=== PATIENT | female | born 1935 | race Caucasian/White ===

== ENCOUNTER 2018-01-13 13:44 | Outpatient (CLI) | payer MEDICARE ==
[~2018-01-13] VITALS: Ht 154.9 cm; Wt 69.9 kg
[2018-01-13] MEDS ORDERED: METO-333 PO (14:16)
[2018-01-13] MEDS ORDERED: LISI1TAB8 PO (14:16)
[2018-01-13] MEDS ORDERED: LEVO100T PO (14:16)
[2018-01-13] MEDS ORDERED: SENN-175 PO (14:16)
[2018-01-13] MEDS ORDERED: OMEP20CA12 PO (14:16)
[2018-01-16] MEDS ORDERED: ACHD5005 PO (09:44)
[2018-01-16] MEDS ORDERED: AMOX-355 PO (09:45)
== END 2018-01-13 14:43 | disposition home or self-care (01) ==
LOC: PREOP 13:44
PROVIDERS: ATTEND Surgery
DX: Z01.818 Encounter for other preprocedural examination (principal)

== ENCOUNTER 2018-01-16 06:14 | Day surgery (SDC) | payer MEDICARE ==
[~2018-01-16] VITALS: Ht 154.9 cm; Wt 69.9 kg
[~2018-01-16 06:14] MED LIST: LEVO100T PO; LISI1TAB8 PO; METO-333 PO; OMEP20CA12 PO; SENN-175 PO
[2018-01-16] MEDS ORDERED: ONDANSETRON 4 MG/2 ML (SDV) Z0FRAN ONE (06:45)
[2018-01-16] MEDS ORDERED: LIDOCAINE PF 2% 2 ML (XYLOCAINE) VIAL ONE (06:45)
[2018-01-16] MEDS ORDERED: fentaNYL INJECTION 100 MCG/2 ML AMP ONE ×2 (06:45→09:30)
[2018-01-16] MEDS ORDERED: ROCURONIUM 10 MG/ML 5 ML SYRINGE IV ONE (06:45)
[2018-01-16] MEDS: LACTATED RINGERS 1,000 ML IV PRN ×2 (06:45→08:21)
[2018-01-16] MEDS ORDERED: proPOfol 200 MG/20 ML (DIPRIVAN) VIAL IV ONE (06:45)
[2018-01-16] MEDS ORDERED: DEXAMETHASONE 10 MG/ML (DECADRON) 1 ML VIAL ONE (06:45)
[2018-01-16 06:48] LABS: BASOPHILS # (AUTO) 0.1 10^3/uL (0.0-0.1); BASOPHILS % (AUTO) 1 % (0-10); EOSINOPHILS # (AUTO) 0.2 10^3/uL (0.0-0.3); EOSINOPHILS % (AUTO) 4 % (0-10); HEMATOCRIT 39 % (35-52); HEMOGLOBIN 12.8 G/DL (11.5-16.0); LYMPHOCYTES # (AUTO) 1.1 X 10^3 (1.0-4.0); LYMPHOCYTES % (AUTO) 21 % (12-44); MEAN CORPUSCULAR HEMOGLOBIN 30 PG (25-34); MEAN CORPUSCULAR HGB CONC 33 G/DL (32-36); MEAN CORPUSCULAR VOLUME 92 FL (80-99); MEAN PLATELET VOLUME 11.4 FL (7.4-10.4); MONOCYTES # (AUTO) 0.8 X 10^3 (0.0-1.0); MONOCYTES % (AUTO) 16 % (0-12); NEUTROPHILS # (AUTO) 3.2 X 10^3 (1.8-7.8); NEUTROPHILS % (AUTO) 59 % (42-75); PLATELET COUNT 229 10^3/uL (130-400); RED BLOOD COUNT 4.23 10^6/uL (4.35-5.85); RED CELL DISTRIBUTION WIDTH 13.6 % (10.0-14.5); WHITE BLOOD COUNT 5.4 10^3/uL (4.3-11.0)
[2018-01-16] MEDS ORDERED: SEVOFLURANE (ULTANE) 15 ML INHAL SOLN ONE ×4 (06:48→09:34)
[2018-01-16] MEDS ORDERED: ceFAZolin INJECTION 1,000 MG in NS (IVPB) 50 ML IV ONE (07:15)
[2018-01-16] MEDS ORDERED: metroNIDAZOLE 500MG/100ML IVPB 100 ML IV ONE (07:15)
[2018-01-16 07:17] LABS: ALANINE AMINOTRANSFERASE 22 U/L (0-55); ALBUMIN 4.1 GM/DL (3.2-4.5); ALKALINE PHOSPHATASE 82 U/L (40-136); BILIRUBIN,TOTAL 0.6 MG/DL (0.1-1.0); BUN/CREATININE RATIO 18; CALCIUM 9.4 MG/DL (8.5-10.1); CARBON DIOXIDE 25 MMOL/L (21-32); CHLORIDE 105 MMOL/L (98-107); CREATININE SERUM 0.78 MG/DL (0.60-1.30); GFR ESTIMATED > 60; GLUCOSE 103 MG/DL (70-105); POTASSIUM 4.1 MMOL/L (3.6-5.0); SODIUM 140 MMOL/L (135-145)
[2018-01-16] MEDS ORDERED: BUP/EPI 0.5% 1:200,000 (SENSORCAINE) 30 ML VIAL ONE (07:27)
--- NOTE | 2018-01-16 07:45 | Progress Note-Pre Operative ---
Pre-Operative Progress Note H&P Reviewed The H&P was reviewed, patient examined and no changes noted. Date Seen by Provider: Jan 08, 2018 Time Seen by Provider: 11:20 Date H&P Reviewed: Jan 16, 2018 Time H&P Reviewed: 07:45 Pre-Operative Diagnosis: Gallstones ANGELA ATWOOD MD Jan 16, 2018 07:45
[2018-01-16 07:51] VITALS: BP 146/76
[2018-01-16] MEDS ORDERED: PHENYLEPHRINE 100 MCG/ML 10 ML (ANESTHESIA) SYR ONE (08:00)
[2018-01-16] MEDS ORDERED: diphenhydrAMINE 50 MG/ML INJ (BENADRYL) ONE (08:44)
[2018-01-16] MEDS ORDERED: NEOSTIGMINE 1 MG/ML 5 ML SYRINGE ONE (09:17)
[2018-01-16] MEDS ORDERED: GLYCOPYRROLATE 0.2 MG/ML (ROBINUL) 2 ML VIAL ONE (09:17)
[2018-01-16] MEDS ORDERED: ACHD5005 PO (09:44)
[2018-01-16] MEDS ORDERED: AMOX-355 PO (09:45)
--- NOTE | 2018-01-16 09:47 | Discharge Inst-Simple/Standard ---
Discharge Inst-Standard Discharge Medications New, Converted or Re-Newed RX: RX on Chart Patient Instructions/Follow Up Plan of Care/Instructions/FU: To stay NPO from midnight on Friday. ERCP scheduled for Friday. My staff will call her with time & place to report etc. F/U with me in 2 weeks. Dressings off in 48 hours. Incentive spirometry Activity as Tolerated: Yes Discharge Diet: No Restrictions ANGELA ATWOOD MD Jan 16, 2018 09:47
--- NOTE | 2018-01-16 09:55 | Diagnostic Imaging Report ---
INDICATION: Abdominal pain Intraoperative fluoroscopy used for operative cholangiogram in surgery. Contrast was injected through the cystic duct stump. There are multiple filling defects in the common bile duct compatible with stones. Some contrast does flow to the duodenum. There is moderate dilatation of the common duct. IMPRESSION: Intraoperative cholangiogram shows choledocholithiasis without obstruction. 39 seconds of fluoroscopy time was used in surgery. Dictated by: Dictated on workstation # [id number]
[2018-01-16] MEDS ORDERED: ONDANSETRON 4 MG/2 ML (SDV) Z0FRAN IVP PRN (10:00)
[2018-01-16] MEDS ORDERED: HYDROmorphone 2 MG/ML VIAL (DILAUDID) IV ONE (10:00)
[2018-01-16 10:45] VITALS: BP 126/50
[2018-01-16 11:15] VITALS: BP 145/71
--- NOTE | 2018-01-16 11:18 | Operative Report ---
Operative Report Date of Procedure/Surgery Jan 16, 2018 Surgeon (s) ANGELA ATWOOD MD Stock Checkerer (s): Loki Peace ( [facility]) Post-Operative Diagnosis 1. Cholelithiasis 2.Chronic cholecystitis 3.Choledocholithiasis Procedure Performed robotic-assisted cholecystectomy Intraoperative cholangiogram( dilated common bile duct with multiple stones within it.) Description of Procedure Anesthesia Type: General Estimated blood loss (mL): minimal Specimen(s) collected/removed gallbladder with stones within it Description of the Procedure Indication for the procedure: This lady presented with symptomatic gallstones and sludge within the gallbladder. She was offered cholecystectomy with cholangiogram, using minimally invasive technique with robotic assistance. Informed consent was obtained after reviewing the operative details and complications of wound infection and bile leak. Should stones be found in the common bile duct, the requirement for therapeutic ERCP was highlighted. Informed consent was obtained. Description of the procedure: She was placed supine on the operative table and general anesthesia induced. 2 g of Ancef and 500 mg of Flagyl were administered intravenously as prophylaxis against wound infection. Sequential compression devices were placed around her legs, to minimize the risk of venous thrombosis. Abdomen was prepared and draped in the usual sterile manner. A subumbilical incision was made and pneumoperitoneum established using a Veress needle. Intra -abdominal pressure was maintained at 15 mmHg, using carbon dioxide insufflation. A 12 mm trocar was placed and anatomy visualized using the high definition, 3-dimensional laparoscope associated with da David system. Omentum and the pylorus of the stomach where adherent to the body of the gallbladder. In addition, the gallbladder itself appeared to be thickened due to chronic cholecystitis. Under direct view, I placed an 8 mm trocar over each side of the abdomen, followed by a 5 mm trocar in the left subcostal margin. The robotic system was then docked into place. Omentum was taken down by using the hook cautery and the pylorus was carefully preserved without any iatrogenic injury. The fundus of the gallbladder was then retracted cephalad and the infundibulum grasped with Cadiere forceps. Peritoneum overlying Calot's triangle was incised using the hook cautery, delineating the cystic duct and the artery. The former was rather wide and therefore, it is felt reasonable to proceed with cholangiogram, despite normal liver function tests. Cystic artery was controlled between locking clips. A taut catheter was introduced into the cystic duct and conventional cholangiogram obtained. Common bile duct was dilated to at least 14 mm in diameter with multiple filling defects, consistent with choledocholithiais. Contrast however, flowed slowly into the duodenum. The catheter was then removed and the cystic duct controlled using locking clips. Cholecystectomy was then completed using the hook cautery. The gallbladder was then placed in an Endo Catch bag and removed via the subumbilical trocar site. The fascia over this incision was then closed using #1 Vicryl using a [place] device under direct view. Skin incisions were closed using 4-0 Vicryl, in a subcuticular fashion. 0.5 percent Marcaine with epinephrine was infiltrated along the incisions both preemptively and at the conclusion of the operation. She tolerated the procedure well, was extubated in the operating room and taken to the recovery room in a stable condition. Findings of the Procedure See op report Allergies and Home Medications Allergies Coded Allergies: Iodinated Contrast- Oral and IV Dye (Verified Allergy, Unknown, RASH, 01/13) Home Medications Amoxicillin/Potassium Clav 1 Each Tablet, 1 EACH PO Q12H Prescribed by: ANGELA ATWOOD on 01/16/18 0945 Hydrocodone Bit/Acetaminophen 1 Tab Tab, 1 TAB PO Q6H PRN for PAIN-MODERATE Prescribed by: ANGELA ATWOOD on 01/16/18 0944 Levothyroxine Sodium 100 Mcg Tablet, 50 MCG PO DAILY, (Reported) take 1/2 of 100mcg tab Lisinopril/Hydrochlorothiazide 1 Each Tablet, 1 EACH PO DAILY, (Reported) Metoprolol Tartrate 25 Mg Tablet, 25 MG PO BID, (Reported) Omeprazole 20 Mg Capsule.dr, 20 MG PO DAILY, (Reported) Sennosides/Docusate Sodium 1 Each Tablet, 1 EACH PO DAILY, (Reported) Patient Home Medication List Home Medication List Reviewed: Yes ANGELA ATWOOD MD Jan 16, 2018 11:18
[2018-01-16 11:47] VITALS: BP 150/71
== END 2018-01-16 11:55 | disposition home or self-care (01) ==
LOC: SDC 06:14
PROVIDERS: ATTEND Surgery
DX: K80.64 Calculus of gallbladder and bile duct with chronic cholecystitis without obstruction (principal); I10 Essential (primary) hypertension; K21.9 Gastro-esophageal reflux disease without esophagitis; Z79.899 Other long term (current) drug therapy
CPT/HCPCS: 36415; 80053; 85025; 87081

== ENCOUNTER → 2020-05-09 | Outpatient (CLI) | payer MEDICARE ==
[~2020-05-09] MED LIST changes: +ACHD5005 PO; +AMOX-355 PO; +LISI1TAB46 PO; -LISI1TAB8 PO; -OMEP20CA12 PO; +OMEP20CA18 PO
--- NOTE | 2020-05-09 15:04 | Diagnostic Imaging Report ---
PROCEDURE: US left lower extremity venous. TECHNIQUE: Multiple real-time grayscale images were obtained over the left lower extremity in various projections. Additional duplex Doppler and color Doppler images were also obtained. INDICATION: Left lower extremity swelling. FINDINGS: There is no evidence of left lower extremity DVT. Left lower extremity deep venous system shows normal compressibility with normal response to augmentation and Valsalva. No fluid collection or mass is detected. IMPRESSION: No evidence of left lower extremity DVT. Dictated by: Dictated on workstation # [id number]
== END ==
LOC: RAD 10:07
PROVIDERS: ATTEND Student in an Organized Health Care Education/Training Program
DX: M79.662 Pain in left lower leg (principal); R22.43 Localized swelling, mass and lump, lower limb, bilateral